=== PATIENT | female | born 1940 | race Caucasian/White ===

== ENCOUNTER 2018-05-01 18:53 | Inpatient (IN) | payer MEDICARE ==
[2018-05-01] VITALS (8 sets, daily range): BP systolic 113–138; BP diastolic 53–77
[~2018-05-01] VITALS: Ht 160 cm; Wt 118.0 kg
--- NOTE | ~2018-05-01 | EKG ---
[place], [place] ELECTROCARDIOGRAM REPORT NAME: ROMANA GARCIA UNIT #: [id number] ROOM: 411 DOCTOR: JONNY DRAFT REPORT BIRTHDATE: [birth year] [facility] Test Date: 2018-05-01 Test Time: 20:07:55 Pat Name: ROMANA GARCIA Department: Room: 411 Gender: F Law Researcher: Makenna Webster : 1940 Requested By: CELINA WALLACE Order Number: [id number] Reading MD: Anastasiya Espinal MD Measurements Intervals [place] Rate: 81 P: -12 SC: 147 QRS: 57 QRSD: 88 T: 57 QT: 390 QTc: 453 Interpretive Statements Sinus rhythm Normal ECG Electronically Signed On 05-05-2018 12:17:02 PDT by Anastasiya Espinal MD CM:EKGRPT:ELECTROCARDIOGRAM REPORT 06 16 CELINA FULLER DRAFT REPORT CELINA CHEATHAM
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
[2018-05-01] MEDS ORDERED: HORIZANT300 M1 PO (19:19)
[2018-05-01] MEDS ORDERED: TEMAZEPAM30 MG PO (19:19)
[2018-05-01] MEDS ORDERED: LEVOTHYROXINE50 MCG PO (19:19)
[2018-05-01] MEDS ORDERED: KEPPRA1000 MG PO (19:20)
[2018-05-01] MEDS ORDERED: BACLOFEN5 MG PO (19:21)
[2018-05-01] MEDS ORDERED: TYLENOL W/ CODE30 ML PO (19:21)
[2018-05-01] MEDS ORDERED: ALENDRONATE SOD70 M1 PO (19:21)
[2018-05-01 19:38] LABS: BASO % 0.4 % (0.0-1.0); EOS # 0.4 10*3/uL (0.0-0.4); EOS % 4.3 % (1.0-4.0); HEMATOCRIT 40.8 % (37.0-47.0); HEMOGLOBIN 12.3 g/dl (12.0-16.0); MEAN CELL VOLUME 97.8 fl (81.0-99.0); MEAN CORPUSCULAR HGB 29.5 pg (27.0-31.0); MEAN CORPUSCULAR HGB CONC 30.1 g/dl (33.0-37.0); MONO # 0.6 10*3/uL (0.1-1.0); MONO % 6.3 % (3.0-9.0); NEUT # 6.1 10*3/uL (2.3-7.9); NEUT % 66.8 % (47.0-73.0); PLATELET COUNT AUTOMATED 199 10*3/uL (130-400); RED BLOOD COUNT 4.17 10*6/uL (4.10-5.10); RED CELL DISTRI WIDTH 13.9 % (0-14.5); WHITE BLOOD COUNT 9.1 10*3/uL (4.8-10.8)
[2018-05-01 19:49] LABS: ACT PARTIAL THROMBO TIME 26.1 SECONDS (20.8-31.5)
[2018-05-01 19:52] LABS: ALBUMIN 3.3 gm/dl (3.1-4.5); ALKALINE PHOSPHATASE 102 U/L (45-117); BUN 20 mg/dl (7-24); CHLORIDE 111 mmol/L (98-107); CREATININE 1.01 mg/dL (0.55-1.02); POTASSIUM 4.1 mmol/L (3.5-5.1); SGOT/AST 16 IU/L (3-35); SGPT/ALT 17 U/L (12-78); SODIUM 146 mmol/L (136-145); TOTAL PROTEIN 6.9 gm/dL (6.4-8.2)
[2018-05-02] VITALS (7 sets, daily range): BP systolic 95–121; BP diastolic 39–68
[2018-05-02 07:09] LABS: BASO % 0.2 % (0.0-1.0); EOS # 0.3 10*3/uL (0.0-0.4); HEMATOCRIT 38.1 % (37.0-47.0); HEMOGLOBIN 11.3 g/dl (12.0-16.0); LYMPH # 2.7 10*3/uL (1.3-4.4); MEAN CORPUSCULAR HGB 29.4 pg (27.0-31.0); MEAN CORPUSCULAR HGB CONC 29.7 g/dl (33.0-37.0); MEAN PLATELET VOLUME 11.1 fl (9.6-12.3); MONO # 0.9 10*3/uL (0.1-1.0); MONO % 7.4 % (3.0-9.0); NEUT # 8.4 10*3/uL (2.3-7.9); NEUT % 67.8 % (47.0-73.0); PLATELET COUNT AUTOMATED 225 10*3/uL (130-400); RED BLOOD COUNT 3.85 10*6/uL (4.10-5.10); RED CELL DISTRI WIDTH 13.9 % (0-14.5); WHITE BLOOD COUNT 12.4 10*3/uL (4.8-10.8)
[2018-05-02] MEDS ORDERED: TYLENOL WITH C1 EACH PO (11:35)
[2018-05-03] VITALS: BP 103/43
[2018-05-03 08:00] VITALS: BP 111/46
[2018-05-03 09:13] LABS: BUN 24 mg/dl (7-24); CHLORIDE 110 mmol/L (98-107); CHOLESTEROL 123 mg/dL (<200); FREE T4 1.33 ng/dl (0.76-1.46); HDL CHOLESTEROL 44 mg/dl (40-60); LDL CHOLESTEROL 63 mg/dL (9-159); PHOSPHOROUS 3.5 mg/dL (2.5-4.9); POTASSIUM 4.2 mmol/L (3.5-5.1); SODIUM 145 mmol/L (136-145); TRIGLYCERIDES 81 mg/dl (<150); VLDL CHOLESTEROL 16 mg/dL (6-40)
[2018-05-03 10:30] LABS: VITAMIN D, 25-HYDROXY 4.7 ng/mL (30-100)
[2018-05-03 12:00] VITALS: BP 119/67
[2018-05-03 16:00] VITALS: BP 94/50
[2018-05-03 20:00] VITALS: BP 107/57
[2018-05-04 00:49] VITALS: BP 103/46
[2018-05-04 06:47] LABS: BASO % 0.5 % (0.0-1.0); EOS # 0.4 10*3/uL (0.0-0.4); EOS % 5.5 % (1.0-4.0); HEMATOCRIT 30.9 % (37.0-47.0); HEMOGLOBIN 9.2 g/dl (12.0-16.0); LYMPH # 2.8 10*3/uL (1.3-4.4); LYMPH % 35.8 % (27.0-41.0); MEAN CELL VOLUME 98.7 fl (81.0-99.0); MEAN CORPUSCULAR HGB 29.4 pg (27.0-31.0); MEAN CORPUSCULAR HGB CONC 29.8 g/dl (33.0-37.0); MEAN PLATELET VOLUME 10.6 fl (9.6-12.3); MONO # 0.6 10*3/uL (0.1-1.0); MONO % 8.1 % (3.0-9.0); NEUT # 3.9 10*3/uL (2.3-7.9); NEUT % 49.7 % (47.0-73.0); PLATELET COUNT AUTOMATED 166 10*3/uL (130-400); RED BLOOD COUNT 3.13 10*6/uL (4.10-5.10); RED CELL DISTRI WIDTH 13.8 % (0-14.5); WHITE BLOOD COUNT 7.8 10*3/uL (4.8-10.8)
[2018-05-04 06:59] LABS: BUN 23 mg/dl (7-24); CHLORIDE 110 mmol/L (98-107); CREATININE 0.73 mg/dL (0.55-1.02); POTASSIUM 3.9 mmol/L (3.5-5.1); SODIUM 145 mmol/L (136-145)
[2018-05-04 12:00] VITALS: BP 102/50
[2018-05-04 16:00] VITALS: BP 108/49
[2018-05-04 17:13] LABS: BUN 26 mg/dl (7-24); CHLORIDE 107 mmol/L (98-107); CREATININE 0.88 mg/dL (0.55-1.02); SODIUM 142 mmol/L (136-145)
[2018-05-04 20:00] VITALS: BP 130/52
[2018-05-05] VITALS: BP 101/49
[2018-05-05 06:13] LABS: BASO % 0.6 % (0.0-1.0); EOS # 0.5 10*3/uL (0.0-0.4); EOS % 7.7 % (1.0-4.0); HEMOGLOBIN 9.3 g/dl (12.0-16.0); LYMPH # 2.4 10*3/uL (1.3-4.4); LYMPH % 36.3 % (27.0-41.0); MEAN CELL VOLUME 97.5 fl (81.0-99.0); MEAN CORPUSCULAR HGB 29.2 pg (27.0-31.0); MEAN PLATELET VOLUME 10.5 fl (9.6-12.3); MONO # 0.5 10*3/uL (0.1-1.0); MONO % 7.9 % (3.0-9.0); NEUT # 3.1 10*3/uL (2.3-7.9); PLATELET COUNT AUTOMATED 175 10*3/uL (130-400); RED BLOOD COUNT 3.18 10*6/uL (4.10-5.10); RED CELL DISTRI WIDTH 13.6 % (0-14.5); WHITE BLOOD COUNT 6.6 10*3/uL (4.8-10.8)
[2018-05-05 06:19] LABS: BUN 21 mg/dl (7-24); CHLORIDE 109 mmol/L (98-107); CREATININE 0.67 mg/dL (0.55-1.02); POTASSIUM 3.9 mmol/L (3.5-5.1); SODIUM 146 mmol/L (136-145)
[2018-05-05 07:17] LABS: BILIRUBIN NEGATIVE (NEGATIVE); BLOOD 3+ (NEGATIVE); CLARITY CLOUDY (CLEAR); COLOR YELLOW (YELLOW); GLUCOSE NEGATIVE (NEGATIVE); KETONE 1+ (NEGATIVE); LEUKO ESTERASE 2+ (NEGATIVE); NITRITE NEGATIVE (NEGATIVE); UROBILINOGEN 0.2 E.U./dl (0.2-1.0)
[2018-05-05 07:18] LABS: RBC TNTC rbc/hpf (0-2); WBC TNTC wbc/hpf (0-5)
[2018-05-05 08:00] VITALS: BP 119/54
[2018-05-05 12:00] VITALS: BP 122/60
[2018-05-05 16:00] VITALS: BP 121/40
[2018-05-05 20:00] VITALS: BP 115/47
[2018-05-06] VITALS: BP 112/98
[2018-05-06 08:00] VITALS: BP 119/52
[2018-05-06] MEDS ORDERED: NYSTOP60 GM T (09:42)
[2018-05-06] MEDS ORDERED: VITAMIN D-32000 UNIT PO (09:42)
[2018-05-06] MEDS ORDERED: Percocet 325 MG1 TAB PO (09:44)
[2018-05-06 12:00] VITALS: BP 116/56
== END 2018-05-06 14:47 | DRG 580 ==
LOC: ED 18:53 → EDHOLD 20:21 → ED 20:21 → 4E 20:21 → EDHOLD 20:27 → 4E 20:27
PROVIDERS: Family Medicine; Internal Medicine; Orthopaedic Surgery; Physician Assistant; Student in an Organized Health Care Education/Training Program
PROC: 0JQP0ZZ Repair Left Lower Leg Subcutaneous Tissue and Fascia, Open Approach (ICD-10-PCS; principal; 2018-05-01)
PROC: 3E10X8Z Irrigation of Skin and Mucous Membranes using Irrigating Substance (ICD-10-PCS; principal; 2018-05-01)
DX: S81.812A Laceration without foreign body, left lower leg, initial encounter (principal); E87.0 Hyperosmolality and hypernatremia; Z68.42 Body mass index [BMI] 45.0-49.9, adult; M81.0 Age-related osteoporosis without current pathological fracture; D33.2 Benign neoplasm of brain, unspecified; G89.29 Other chronic pain; E87.8 Other disorders of electrolyte and fluid balance, not elsewhere classified; E55.9 Vitamin D deficiency, unspecified; Z87.891 Personal history of nicotine dependence; X58.XXXA Exposure to other specified factors, initial encounter; E03.9 Hypothyroidism, unspecified; E66.01 Morbid (severe) obesity due to excess calories; E83.51 Hypocalcemia; Z88.0 Allergy status to penicillin; Z79.899 Other long term (current) drug therapy; Z82.49 Family history of ischemic heart disease and other diseases of the circulatory system; Z83.3 Family history of diabetes mellitus; Z91.018 Allergy to other foods; Y93.89 Activity, other specified; Y92.89 Other specified places as the place of occurrence of the external cause; Y99.8 Other external cause status